=== PATIENT | female | born 1950 | race Caucasian/White ===

== ENCOUNTER 2018-04-17 10:51 | Emergency (ER) | payer MEDICARE, OTHER ==
[2018-04-17 11:03] VITALS: BP 159/77
--- NOTE | 2018-04-17 11:13 | UC ---
Cardiac HPI - HPI Summary HPI Summary: PATIENT FELL ASLEEP ON THE COUCH LAST NIGHT AND WOKE UP AT 3:30 AM THIS MORNING WITH MIDSTERNAL CHEST TIGHTNESS. NOT WORSE WITH EXERTION. NOT WORSE WITH DEEP BREATH. DENIES SHORTNESS OF BREATH AND NAUSEA. PATIENT DOES HAVE DIAPHORESIS BUT STATES THAT SHE HAS TROUBLE WITH THIS AT [facility] AND HAS FOR YEARS. TOOK ASA 81 MG FREIGHT WEIGHER. - History of Current Complaint Chief Complaint: UCChestPain Stated Complaint: CHEST TIGHTNESS Time Seen by Provider: 04/17/18 11:02 Hx Obtained From: Patient Hx Last Menstrual Period: post Onset/Duration: Sudden Onset, Lasting Hours, Still Present Timing: Constant Initial Severity: Moderate Current Severity: Moderate Pain Intensity: 6 Chest Pain Location: Mid Sternal Character: Tightness Aggravating Factor(s): Nothing Alleviating Factor(s): Nothing Associated Signs & Symptoms: Positive: Chest Pain, Diaphoresis. Negative: SOB, Fever, Nausea/Vomiting, Cough, Back Pain - Allergy/Home Medications Allergies/Adverse Reactions: Allergies Allergy/AdvReac Type Severity Reaction Status Date / Time sulfa Allergy Unknown Uncoded 04/17/18 11:09 Reaction Details Home Medications: Home Medications Escitalopram Oxalate [Lexapro 10 mg] 1 tab PO DAILY 04/17/18 [History Confirmed 04/17/18] PMH/Surg Hx/FS Hx/Imm Hx Cardiovascular History: Hypertension Psychological History: Anxiety - Surgical History Surgical History: Yes Surgery Procedure, Year, and Place: APPENDIX,. BREAST REDUCTION,. TONSILECTOMY ,. 2013 ACHILLES RECONSTRUCTION LEFT ANKLE, [facility]. 2014 VITRECTOMY RIGHT EYE, [place] - Social History Alcohol Use: Occasionally Substance Use Type: None Smoking Status (MU): Former Smoker Have You Smoked in the Last Year: No When Did the Patient Quit Smoking/Using Tobacco: YEARS AGO - Immunization History Most Recent Influenza Vaccination: 2011 Most Recent Tetanus Shot: 2013 Review of Systems Constitutional: Negative Respiratory: Negative Cardiovascular: Chest Pain Gastrointestinal: Negative All Other Systems Reviewed And Are Negative: Yes Physical Exam Triage Information Reviewed: Yes Appearance: Well-Appearing, No Pain Distress, Well-Nourished Vital Signs: Initial Vital Signs Temp 96 F 04/17/18 10:56 Pulse 60 04/17/18 10:56 Resp 18 04/17/18 10:56 BP 159/77 04/17/18 10:56 Pulse Ox 96 04/17/18 10:56 Vital Signs Reviewed: Yes Eyes: Positive: Conjunctiva Clear ENT: Positive: Hearing grossly normal Neck: Positive: Supple Respiratory Exam: Normal Cardiovascular Exam: Normal Abdomen Description: Positive: Soft Musculoskeletal: Positive: No Edema Neurological: Positive: Alert Psychological: Positive: Age Appropriate Behavior Skin: Positive: Other - FACE AND NECK DIAPHORETIC Diagnostics - EKG Cardiac Rate: NL - 64BPM Cardiac Rhythm: Sinus: Normal Ectopy: None ST Segment: Normal - Assessment/Plan Course Of Treatment: [place] [facility] [place]. PT OFFERED TRANSPORT TO THE ED BY AMBULANCE BUT DECLINES. ADVISED THAT BY NOT TRAVELING IN A MONITORED SETTING SHE COULD BE RISKING WORSENING OF HER CONDITION THAT COULD POSE A THREAT TO HER LIFE, HEALTH AND MEDICAL SAFETY. SHE VERBALIZES UNDERSTANDING AND CONTINUES TO DECLINE AMBULANCE TRANSFER. GIVEN 3 MORE 81MG ASA FOR A TOTAL OF #4 TODAY. - Clinical Impression Provider Diagnoses: CHEST PAIN Discharge - Sign-Out/Discharge Documenting (check all that apply): Patient Departure - Discharge Plan Condition: Stable Disposition: TRANS HIGHER LVL OF CARE FAC Patient Education Materials: Chest Pain (ED) Referrals: Deyanira Orourke MD [Primary Care Provider] - If Needed Additional Instructions: GO DIRECT[place] [facility] [place] HERE FOR FURTHER EVALUATION. YOU HAVE DECLINED TRANSFER TO THE ED BY AMBULANCE. BE ADVISED THAT BY NOT TRAVELING IN A MONITORED SETTING YOU COULD BE RISKING WORSENING OF YOUR CONDITION THAT COULD POSE A THREAT TO YOUR LIFE, HEALTH AND MEDICAL SAFETY. - Billing Disposition and Condition Condition: STABLE Disposition: Trans Higher Lvl of Care Fac
[2018-04-17] MEDS ORDERED: Aspirin 81 mg CHEW TAB* 81 MG TAB.CHEW PO ONE (11:23)
[2018-04-17] MEDS ORDERED: Nitroglycerin TAB 0.4 MG* 0.4 MG TAB SL ONE (11:23)
== END 2018-04-17 11:35 | disposition short-term general hospital (02) ==
LOC: UCEAST 10:51
DX: R07.89 Other chest pain (principal); Z88.2 Allergy status to sulfonamides; Z87.891 Personal history of nicotine dependence; R61 Generalized hyperhidrosis
CPT/HCPCS: 93005; 99212; A9270-GY; G0463

== ENCOUNTER 2018-04-17 11:52 | Emergency (ER) | payer MEDICARE ==
[2018-04-17] MEDS ORDERED: Nitroglycerin TAB 0.4 MG* 0.4 MG TAB SL ONE (14:00)
--- NOTE | 2018-04-17 14:00 | ED ---
HPI Chest Pain - HPI Summary HPI Summary: This is scribe Rony Harrell documenting for attending Joel Bell M.D. Patient is a 67 y/o F w/ c/o chest tightness onsetting today at around 0330. She reports falling asleep in front of the TV with the lights on. At 0330, she woke up with chest tightness present. She denies nausea, SOB, vomiting, and palpitations. Sweating was also noted, but patient does not describe this as abnormal. She went to her bed with the chest pressure still present. Patient woke up at 0830 and states that she initially felt better, but then she got out of bed and 15 minutes later Sx returned. Patient went to a walk-in clinic, was given aspirin there, and then sent to ED for further care. She rates pain 4-5/ 10 but notes it is not really a pain but rather a pressure. Pressure stays in chest. She states she felt slightly better after a bowel movement but otherwise notes nothing alleviates/aggravates Sx. Patient denies Hx of similar symptoms. PMHx of HTN is noted, denies diabetes. Patient has PSHx of appendectomy, tonsillectomy, Achilles reconstruction on left foot, elective breast reduction, and vitrectomy of left eye. FMHx of diabetes is present. Allergies and home medications are noted. Patient arrived in car. - History of Current Complaint Chief Complaint: EDChestPainROMI Time Seen by Provider: 04/17/18 13:52 Hx Obtained From: Patient Hx Last Menstrual Period: post Onset/Duration: Started Hours Ago - onset 0330 today Timing: Constant Current Severity: Mild - rates 4-5/10 but notes it is more of a pressure as opposed to pain Pain Intensity: 4 Pain Scale Used: 0-10 Numeric - rates 4-5/10 but notes it is more of a pressure as opposed to pain Chest Pain Location: Diffuse Chest Pain Radiates: No Character: Tightness Aggravating Factor(s): Nothing Alleviating Factor(s): Other: - bowel movement was noted to provide slight relief Associated Signs and Symptoms: Positive: Diaphoresis, Other: - POSITIVE: chest tightness NEGATIVE: palpitations. Negative: Shortness of Breath, Nausea, Vomiting - Allergy/Home Medications Allergies/Adverse Reactions: Allergies Allergy/AdvReac Type Severity Reaction Status Date / Time sulfa Allergy Unknown Uncoded 04/17/18 12:10 Reaction Details Home Medications: Home Medications Alpha Lipoic Acid [Alpha Lipoic Acid Extra S] 600 mg PO QAM 04/17/18 [History Confirmed 04/17/18] Ascorbic Acid TAB* [Vitamin C TAB*] 500 mg PO QAM 04/17/18 [History Confirmed 04/17/18] Aspirin EC TAB* [Ecotrin EC Low Dose 81 MG*] 81 mg PO DAILY 04/17/18 [History Confirmed 04/17/18] Atorvastatin* [Lipitor*] 20 mg PO BEDTIME 04/17/18 [History Confirmed 04/17/18] Calcium Carbonate [Calcium] 500 mg PO BID 04/17/18 [History Confirmed 04/17/18] Escitalopram (NF) [Lexapro 10 mg (NF)] 10 mg PO DAILY 04/17/18 [History Confirmed 04/17/18] Lisinopril/HCTZ 20/12.5(NF) [Zestoretic 20/12.5(NF)] 1 tab PO DAILY 04/17/18 [ History Confirmed 04/17/18] Macu-Guard 1 cap PO QAM 04/17/18 [History Confirmed 04/17/18] Metoprolol Tartrate TAB* [Lopressor TAB*] 50 mg PO BEDTIME 04/17/18 [History Confirmed 04/17/18] Kerens-3 Fatty Acids (Nf) [Fish Oil (NF)] 1,000 mg PO BID 04/17/18 [History Confirmed 04/17/18] Vitamin B Complex CAP* [B Complex CAP*] 1 cap PO QAM 04/17/18 [History Confirmed 04/17/18] PMH/Surg Hx/FS Hx/Imm Hx Endocrine/Hematology History: Denies: Hx Diabetes, Hx Sickle Cell Disease Cardiovascular History: Reports: Hx Hypertension - CONTROL WITH MEDS, Other Cardiovascular Problems/Disorders - CHOLESTEROL CONTROL WITH MEDS Denies: Hx Pacemaker/ICD Respiratory History: Denies: Hx Asthma, Other Respiratory Problems/Disorders GI History: Denies: Other GI Disorders History: Reports: Hx Kidney Stones - PASSED Denies: Other Problems/Disorders Musculoskeletal History: Reports: Other Musculoskeletal History - POSTERIOR ANKLE PAIN Denies: Hx Rheumatoid Arthritis, Hx Osteoporosis Sensory History: Reports: Hx Contacts or Glasses - GLASSES TO DRIVE Denies: Hx Hearing Aid Opthamlomology History: Reports: Hx Contacts or Glasses - GLASSES TO DRIVE Neurological History: Reports: Hx Nerve Disease - IDIOPATHIC PERIPHERAL NEUROPATHY, Other Neuro Impairments/Disorders - HX OF OCCASIONAL VERTIGO, LAST EPISODE ABOUT 3 WEEKS AGO, PER PATIENT Psychiatric History: Denies: Hx Panic Disorder - Surgical History Surgery Procedure, Year, and Place: APPENDIX,. BREAST REDUCTION,. TONSILECTOMY ,. 2013 ACHILLES RECONSTRUCTION LEFT ANKLE, [facility]. 2014 VITRECTOMY RIGHT EYE, [place] Hx Anesthesia Reactions: Yes - NAUSEA Infectious Disease History: No Infectious Disease History: Denies: Traveled Outside the [place] in Last 30 Days - Family History Known Family History: Positive: Diabetes - father - Social History Alcohol Use: Occasionally Substance Use Type: Reports: None Smoking Status (MU): Former Smoker Have You Smoked in the Last Year: No Review of Systems Positive: Skin Diaphoresis - described as not abnormal Positive: Other - chest tightness . Negative: Palpitations Negative: Shortness Of Breath Negative: Vomiting, Nausea All Other Systems Reviewed And Are Negative: Yes Physical Exam - Summary Physical Exam Summary: GENERAL: Patient is a well developed and nourished female who is lying comfortable in the stretcher. Patient is not in any acute respiratory distress. HEAD AND FACE: No signs of trauma. No ecchymosis, hematomas or skull depressions. No sinus tenderness. EYES: PERRLA, EOMI x 2, No injected conjunctiva, no nystagmus. EARS: Hearing grossly intact. Ear canals and tympanic membranes are within normal limits. MOUTH: Oropharynx within normal limits. NECK: Supple, trachea is midline, no adenopathy, no JVD, no carotid bruit, no c- spine tenderness, neck with full ROM. CHEST: Symmetric, no tenderness at palpation LUNGS: Clear to auscultation bilaterally. No wheezing or crackles. CVS: Regular rate and rhythm, S1 and S2 present, no murmurs or gallops appreciated. ABDOMEN: Soft, non-tender. No signs of distention. No rebound no guarding, and no masses palpated. Bowel sounds are normal. EXTREMITIES: FROM in all major joints, no edema, no cyanosis or clubbing. NEURO: Alert and oriented x 3. No acute neurological deficits. Speech is normal and follows commands. SKIN: Dry and warm Triage Information Reviewed: Yes Vital Signs On Initial Exam: Initial Vitals Temp Pulse Resp BP Pulse Ox 96.5 F 53 17 128/77 95 04/17/18 12:05 04/17/18 12:05 04/17/18 12:05 04/17/18 12:05 04/17/18 12:05 Vital Signs Reviewed: Yes Diagnostics - Vital Signs Vital Signs Temp Pulse Resp BP Pulse Ox 04/17/18 12:05 96.5 F 53 17 128/77 95 - Laboratory Result Diagrams: 04/17/18 14:09 04/17/18 14:09 Lab Statement: Any lab studies that have been ordered have been reviewed, and results considered in the medical decision making process. - Radiology CXR Xray Interpretation: No Acute Changes Radiology Interpretation Completed By: Radiologist - No active disease. This report was reviewed by ED physician. - EKG 1416 Cardiac Rate: Bradycardia - Rate of 50 BPM EKG Rhythm: Sinus Bradycardia EKG Interpretation: T wave inversion in 3, not different from EKG taken on Re-Evaluation - Re-Evaluation First Eval Re-Evaluation Time: 16:20 Comment: Discussed tests and results with patient. Informed patient will be discharged to home and discussed follow-up plan. Chest Pain Course/Dx - Course Assessment/Plan: This patient is a 67-year-old female who presents to the emergency room with a chief complaint of having chest pressure. She reports that approximately 3:30 morning she woke up and she started having the chest pressure. She to one S patient went back to sleep. He did in the morning she woke up and she continued to have symptoms therefore she went to the walk-in clinic. She was given an aspirin and transferred to the emergency room for further workup and management. Patient reports that the pain is 5 out of 10 nonradiating denies any nausea vomiting they pheresis of dizziness. Past medical history significant for hypertension dyslipidemia. This results without any significant abnormality, troponin is 0.00. Chest x-ray shows no acute critical pulmonary pathology. EKG is a normal sinus rhythm without any ST elevations. The patient was given nitroglycerin in the emergency department and the symptoms did not improve. Second troponin 4 hours apart is also 0.00. Therefore I have no suspicion for an acute coronary syndrome. At this time the patient reports that she is feeling better she doesnt have any chest pain. I believe the patient may benefit from a stress test as an outpatient. Therefore I discussed all the findings and test results with the patient and he to follow- up with primary care physician. At this time the patient is hemodynamically stable alert and oriented 3. She was recommended to return to the emergency department she develops any other symptoms such as chest pain, shortness of breath palpitations, nausea vomiting or diaphoresis. The patient understands and agrees. - Diagnoses Provider Diagnoses: Atypical chest pain Discharge - Sign-Out/Discharge Documenting (check all that apply): Patient Departure - discharge - Discharge Plan Condition: Stable Disposition: HOME Patient Education Materials: Chest Pain (ED) Referrals: Deyanira Orourke MD [Primary Care Provider] - 3 Days Additional Instructions: Return to ED for any new or worsening symptoms.
[2018-04-17 14:18] LABS: ABS Basophils 0 10^3/ul (0-0.2); ABS Eosinophils 0.2 10^3/ul (0-0.6); ABS Lymphocytes 1.7 10^3/ul (1.0-4.8); ABS Monocytes 0.7 10^3/ul (0-0.8); ABS Neutrophils 5.7 10^3/ul (1.5-7.7); ABS Nucleated RBC 0 10^3/ul; Eosinophil % 2.4 % (0-6); Hematocrit 37 % (35-47); Hemoglobin 12.7 g/dl (12.0-16.0); Lymphocyte % 19.8 % (25-47); Mean Corpuscular HGB Conc 34 g/dl (31-36); Mean Corpuscular Hemoglobin 30 pg (27-31); Mean Corpuscular Volume 89 fL (80-97); Mean Platelet Volume 8.6 um3 (7.4-10.4); Nucleated Red Blood Cells % 0; Platelet Count 204 10^3/ul (150-450); Red Blood Count 4.18 10^6/ul (4.00-5.40); Red Cell Distribution Width 14 % (10.5-15); White Blood Count 8.3 10^3/ul (3.5-10.8)
--- NOTE | 2018-04-17 14:33 | RAD ---
INDICATION: Chest pain COMPARISON: None TECHNIQUE: An AP portable view obtained at 1419 hours is submitted. FINDINGS: Bones/Soft Tissues: There are no acute bony findings. Cardiomediastinal: The cardiomediastinal silhouette is normal. Lungs: There are no infiltrates. Pleura: There are no pleural effusions. Other: None IMPRESSION: NO ACTIVE DISEASE.
[2018-04-17 16:54] VITALS: BP 129/77
== END 2018-04-17 16:53 | disposition home or self-care (01) ==
LOC: ED 11:52
DX: R07.89 Other chest pain (principal); R61 Generalized hyperhidrosis; R00.1 Bradycardia, unspecified; I10 Essential (primary) hypertension; E78.5 Hyperlipidemia, unspecified; Z88.2 Allergy status to sulfonamides; Z87.442 Personal history of urinary calculi; Z83.3 Family history of diabetes mellitus; Z87.891 Personal history of nicotine dependence
CPT/HCPCS: 36415; 71045; 80053; 82553; 83605; 83880; 84443; 84484; 85025; 93005; 99283; A9270-GY

== ENCOUNTER 2019-06-02 10:06 | Inpatient (IN) | payer MEDICARE, OTHER ==
[~2019-06-02 10:06] MED LIST: Buffered Lidocaine 1% SYRIN* 1 ML/SYRINGE INTRADERM ONE; Dexamethasone IV* 4 MG/ML 1 ML (4 MG) IV SLOW PU ONE; Famotidine IV* 10 MG/ML 2 ML (20 mg) IV ONE; Lactated Ringers 1000 ML Bag* 1,000 ML IV SCH
[2019-06-02] MEDS ORDERED: ceFAZolin 2 GM in NS PREMIX(*) 2 GM/100 ML BAG IVPB ONE (10:43)
[2019-06-02] MEDS ORDERED: Famotidine IV* 10 MG/ML 2 ML (20 mg) ONE (10:43)
[2019-06-02] MEDS ORDERED: Dexamethasone IV* 4 MG/ML 1 ML (4 MG) ONE (10:43)
[2019-06-02] MEDS ORDERED: Lidocaine 1% INJ* 10 MG/ML 30 ML SDV ONE (11:44)
[2019-06-02] MEDS ORDERED: Propofol* 10 MG/ML 20 ML BTL ONE (11:53)
[2019-06-02] MEDS ORDERED: Midazolam* 1 MG/ML 5 ML VIAL (5 MG) ONE (11:53)
[2019-06-02] MEDS ORDERED: Lidocaine 2% PF * 5 ML VIAL ONE (11:53)
[2019-06-02] MEDS ORDERED: fentaNYL* 50 MCG/ML 2 ML VIAL (100 MCG VIAL) ONE (11:53)
[2019-06-02] MEDS ORDERED: diPHENhydraMINE IV* 50 MG/ML 1 ml VIAL (BENADRYL) IV PRN (12:44)
[2019-06-02] MEDS ORDERED: Ondansetron INJ* 2 MG/ML VIAL IV PRN (12:44)
[2019-06-02] MEDS ORDERED: Morphine INJ* 2 MG/ML 1 ML SYRINGE (TWO MG - NEW SYRINGE VERSION) IV PRN (12:44)
[2019-06-02] MEDS ORDERED: Lactated Ringers 1000 ML Bag* 1,000 ML IV SCH (13:00)
[2019-06-02] MEDS: oxyCODONE TAB* 5 MG TAB PO PRN ×3 (14:51→23:35)
[2019-06-02] MEDS: Acetaminophen TAB* 325 MG PO SCH ×2 (14:52→22:22)
[2019-06-02] MEDS ORDERED: Vancomycin per Pharmacy* NOTE FOLLOW UP PRN (16:11)
[2019-06-02] MEDS ORDERED: Vancomycin 1500 MG IV - x ONCE IVPB ONE ×2 (17:00)
[2019-06-02] MEDS: Escitalopram * 10 MG TAB PO SCH (17:14)
[2019-06-02] MEDS: Aspirin TAB* 325 MG PO SCH (17:14)
--- NOTE | 2019-06-02 20:18 | OP ---
DATE OF OPERATION: 06/02/19 - ROOM #333 DATE OF : 46 ATTENDING SURGEON: William Garcia MD ASSISTED BY: Katheryn Lion PA-C. PRE-OP DIAGNOSIS: Right second toe osteomyelitis and first toe chronic ulcer. POST-OP DIAGNOSIS: Right second toe osteomyelitis and first toe chronic ulcer. OPERATIVE PROCEDURES: Partial amputation of right second toe and debridement of ulcer of right great toe. DESCRIPTION OF PROCEDURE: The patient was taken to the operating room where I used a 10 blade to debride this hypertrophic callus and granulation tissue around the medial great toe distal phalanx. I was able to bring the skin and subcutaneous tissue down to a good clean bed. I did not remove any bone. We made a transverse elliptical incision of the middle phalanx of the second toe , dissecting subperiosteally to disarticulate at the PIP level. We then irrigated after dropping the tourniquet and closed dorsal to plantar with 3-0 Monocryl and 3-0 nylon sutures. A compression dressing was then applied over both toes and an Ari wrap. Cultures were sent from the second toe. [id number]/[facility] #: [id number] [facility] FACILITYEron
[2019-06-02] MEDS: Calcium Carbonate TAB* 1250 MG (CALCIUM 500 MG) PO SCH (22:20)
[2019-06-02] MEDS: Docusate CAP* 100 MG PO SCH (22:20)
[2019-06-02] MEDS: Atorvastatin* 20 MG TAB PO SCH (22:21)
[2019-06-02] MEDS: Metoprolol Tartrate TAB* 50 mg PO SCH (22:21)
[2019-06-03] MEDS: Vancomycin(*) 1,000 MG in NS 0.9% 250 ML* 250 ML IVPB SCH ×2 (06:08→18:01)
[2019-06-03] MEDS: Acetaminophen TAB* 325 MG PO SCH ×3 (06:10→22:52)
[2019-06-03 06:54] LABS: Hematocrit 27 % (35-47); Hemoglobin 9.4 g/dL (12.0-16.0); Mean Platelet Volume 8.6 fL (7.4-10.4); Platelet Count 181 10^3/uL (150-450)
[2019-06-03 07:12] LABS: BUN/Creatinine Ratio 24.7 (8-20); Calcium 9.4 mg/dL (8.6-10.3); EGFR Non-African American 66.1 (>60); Potassium 4.5 mmol/L (3.5-5.0)
[2019-06-03] MEDS: [UNRECOGNIZED DRUG - OTHER] PO SCH (08:43)
[2019-06-03] MEDS: ALPHA LIPOIC ACID 600 MG PO SCH (08:43)
[2019-06-03] MEDS: Metoprolol Tartrate TAB* 50 mg PO SCH ×2 (08:43→22:53)
[2019-06-03] MEDS: PTO:OMEGA-3 FATTY ACIDS (NF) 1,000 MG CAP PO SCH (08:43)
[2019-06-03] MEDS: Vitamin THERAPEUTIC TAB PO SCH (08:43)
[2019-06-03] MEDS: Calcium Carbonate TAB* 1250 MG (CALCIUM 500 MG) PO SCH ×2 (08:44→22:53)
[2019-06-03] MEDS: Lisinopril TAB* 10 MG PO SCH (08:44)
[2019-06-03] MEDS: Docusate CAP* 100 MG PO SCH ×2 (08:44→22:53)
[2019-06-03] MEDS: Aspirin TAB* 325 MG PO SCH (08:44)
[2019-06-03] MEDS: Vitamin B Complex TAB PO SCH (08:44)
[2019-06-03] MEDS: Hydrochlorothiazide TAB* 25 MG PO SCH (08:45)
[2019-06-03] MEDS ORDERED: Benzocaine/Menthol LOZ* 1 LOZENGE PO PRN (08:56)
--- NOTE | 2019-06-03 10:03 | CONS ---
CONSULTATION REPORT: DATE OF CONSULT: 06/03/19 HISTORY OF PRESENT ILLNESS: Lucero Mart is a 68-year-old woman who had been operated on yesterday for osteomyelitis of the right second toe. The patient has peripheral neuropathy and has had recurrent infections in her feet. She had had a prior osteomyelitis and most recently has been treated with IV daptomycin with the plan of removing the right second toe because of deformity and recurrent ulceration and infection. She also has had some infection of the right great toe, but it was felt that it was not clearly osteomyelitic and could be treated with antibiotics. She has been seen in consultation with Dr. Olvera, who is supervising her IV treatment. PAST MEDICAL HISTORY: Significant for the following medical problems: 1. Hypertension. 2. Hyperlipidemia. 3. Peripheral neuropathy, idiopathic. 4. Recent left lumbar radiculopathy. 5. Recent left knee pain, probable torn meniscus. 6. Vitamin D deficiency. 7. Posterior tibial tendon tear on the right and recent left ankle pain of uncertain etiology. 8. Impaired fasting glucose. 9. Obesity. 10. Panic disorder. 11. Hyperhidrosis. 12. 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 13. Anxiety and depression. 14. Positional vertigo. PAST SURGICAL HISTORY: Prior surgical procedures include cataract surgery, retinal surgery, tonsillectomy, appendectomy, reduction mammaplasty, Achilles tendon repair. MEDICATIONS: 1. Ondansetron 4 mg every 4 hours p.r.n. nausea. 2. Hydrocodone 5/325 1 to 2 q.4 h. p.r.n. pain. 3. Lorazepam 1 mg twice a day as needed for anxiety. 4. Vitamin D 2000 units daily. 5. Atorvastatin 20 mg daily. 6. Lisinopril/hydrochlorothiazide 20/12.5 daily. 7. Ventolin 2 puffs every 4 hours p.r.n. wheezing. 8. Metoprolol 25 mg b.i.d. 9. Escitalopram 15 mg daily. 10. GenTeal tears 1 drop as needed p.r.n. 11. Xanax 0.25 mg 1 to 2 every 6 hours p.r.n. panic disorder. 12. Amitriptyline 25 mg q.h.s. p.r.n. neuropathy. 13. Meclizine 25 mg 3 times a day p.r.n. dizziness. 14. Daptomycin 500 mg daily. 15. Ibuprofen 200 mg 1 to 2 p.r.n. pain. 16. Alpha lipoic acid 600 mg daily. 17. Aspirin 81 mg daily. 18. Fluticasone propionate 50 mcg 2 sprays nasal every day as needed for congestion. ALLERGIES: MOLD. HABITS: Tobacco: Smoked when younger, not smoking at present. FAMILY HISTORY: Noncontributory. SOCIAL AND PERSONAL HISTORY: The patient is single. She lives in an apartment in the [facility]. REVIEW OF SYSTEMS: Generally, she has not been feeling well. She has been fatigued. Her appetite is okay. Weight is stable. She denies fevers, chills, or sweats. Skin: See above. She has a rash in her groins. HEENT: Visually impaired, still able to drive during the day. She has a slight sore throat this morning. Nodes: Negative. Heme: Negative except that her H and H is down today. Breasts: See above. Endocrine: See above. Respiratory: See above. Cardiovascular: Negative. GI: Negative. : Negative. 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 Musculoskeletal: See above. Neuro: See above. Psychiatric: See above. PHYSICAL EXAMINATION: Vital Signs: Blood pressure 125/62, pulse 50, respirations 16, temperature 98.2, O2 sat 98% on room air. She is an obese, white female sitting up in the chair. Skin is warm and dry. She has rash in her groins. HEENT: Atraumatic, normocephalic. Mouth: Pharynx is unremarkable. Neck: Supple. Chest: Clear. Heart: Normal S1, S2. No murmurs , gallops, or rubs. Abdomen is obese, nontender. Extremities: Her right foot is wrapped. She has no edema. Neurologic: She is without gross focal or lateralizing signs. DIAGNOSTIC STUDIES/LAB DATA: H and H 9.4/27. Chemistries: Sodium 134, potassium 4.5, chloride 101, CO2 28, BUN and creatinine 21/0.85, glucose 118. IMPRESSION: The patient is status post amputation of the right second toe with mobility problems due to torn right posterior tibial tendon, left lumbar radiculopathy, left knee and ankle pain. The patient is to have a physical therapy evaluation and occupational therapist reevaluation. Possibility has been discussed with Dr. Garcia and Dr. Campoverde about the patient going to [facility] for rehab. Of note, the patient has not slept at all last night except for perhaps 1 hour. She is not ready for discharge today. I will also be following up on her low H and H. Dr. Olvera is treating her for the osteomyelitis. He should be following up on antibiotic therapy based on the cultures obtained at the time of surgery. [id number]/[facility] #: [id number] [facility]ALEron
[2019-06-03] MEDS: Nystatin TOP POWDER* 15 GM BTL TOPICAL SCH ×3 (10:21→23:00)
--- NOTE | 2019-06-03 13:23 | CONS ---
CONSULTATION REPORT: DATE OF CONSULTATION: 06/03/19 PRIMARY CARE PROVIDER: Dr. Deyanira Orourke. PROVIDER REQUESTING CONSULTATION: ANA Ritter CONSULTING SERVICE: Infectious Disease. PROVIDER: Abimael Garcia NP ATTENDING PHYSICIAN: Dr. Jose Olvera.* (DICTATED BY ABIMAEL GARCIA NP) REASON FOR CONSULTATION: Right second toe osteomyelitis. IMPRESSION: 1. Right second toe osteomyelitis and right first toe ulcer. Status post debridement of right first toe ulcer and partial amputation of the right second toe, Postop day #1. She is afebrile, has not had any leukocytosis on her recent labs. CRP last week was slightly elevated at 12.21, previously had been 19.34. Right toe in April grew Proteus mirabilis and Enterococcus faecalis. Soft tissue culture from the OR yesterday with PCR negative for MRSA, Staph aureus negative. Final culture is pending. She has been on daptomycin outpatient. She has been doing well and no issues with the PICC line. 2. Peripheral neuropathy. 3. Obesity. PLAN/RECOMMENDATIONS: Recommend continuing vancomycin for now, while we await culture results. Will be transitioned back to IV antibiotics outpatient at the time of her discharge. We will discharge planning see if her insurance will cover home infusions as she does not feel she will be able to get daily to the infusion center after having surgery. We will continue to follow along. Further recommendations will be based on her clinical course and culture results. HISTORY OF PRESENT ILLNESS: Ms. 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 She is being treated with IV daptomycin outpatient as she states that she has been doing well, tolerating the antibiotics without any side effects. Denies any fevers, chills, nausea, vomiting, diarrhea, constipation, urinary symptoms, or recent travels. Due to a right second toe deformity, it was felt that she would do best with a right second toe amputation. She presented to the hospital yesterday for an elective partial right second toe amputation and debridement of the ulcer at the right first toe. While in the hospital, she has been on vancomycin. She states that the pain she was having in her left leg prior to presentation to the hospital has completely resolved during her hospitalization. PAST MEDICAL HISTORY: 1. Hypertension. 2. Hyperlipidemia. 3. Idiopathic peripheral neuropathy. 4. Left lumbar radiculopathy. 5. Vitamin D deficiency. 6. Posterior tibial tendon tear on the right. 7. Obesity. 8. Panic disorder. 9. Hyperhidrosis. 10. 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 11. Anxiety. 12. Depression. 13. BPPV. PAST SURGICAL HISTORY: 1. Status post cataract extraction. 2. Status post retinal surgery. 3. Status post tonsillectomy. 4. Status post appendectomy. 5. Status post reduction mammoplasty. 6. Status post Achilles tendon repair. MEDICATIONS: Home Medications: 1. Aspirin 81 mg by mouth daily. 2. Ascorbic acid 500 mg by mouth daily. 3. Alpha lipoic acid 600 mg by mouth daily. 4. Metoprolol tartrate 50 mg by mouth twice daily. 5. Macu-Guard 1 tablet by mouth daily. 6. Lisinopril/hydrochlorothiazide 20/12.5 mg 1 tablet by mouth daily. 7. Lexapro 10 mg by mouth daily. 8. Calcium carbonate 500 mg by mouth twice daily. 9. Atorvastatin 20 mg by mouth at bedtime. 10. Vitamin B complex 1 tablet by mouth daily. 11. Fish oil 1000 mg by mouth daily. 12. [place] 5/325 half a tablet by mouth 3 times daily. 13. Heparin sodium PICC line flushes twice daily. 14. Daptomycin intravenously once daily. Hospital Medications: 1. Acetaminophen 975 mg by mouth every 8 hours. 2. Aspirin 325 mg by mouth daily. 3. Atorvastatin 20 mg by mouth daily. 4. Calcium carbonate 1250 mg by mouth twice daily. 5. Benadryl 25 mg IV every 6 hours as needed for itching. 6. Colace 100 mg by mouth twice daily. 7. Lexapro 100 mg by mouth every evening. 8. Fish oil 1000 mg by mouth daily. 9. Heparin sodium 1 to 3 mL flush twice daily. 10. Hydrochlorothiazide 12.5 mg by mouth daily. 11. Lactated Ringers 75 mL intravenously an hour. 12. Lisinopril 20 mg by mouth every morning. 13. Metoprolol tartrate 50 mg by mouth twice daily. 14. Morphine sulfate 2 mg IV every 4 hours as needed for pain. 15. Multivitamin 1 tablet by mouth daily. 16. Alpha lipoic acid 600 mg by mouth daily. 17. Macu-Guard 1 tablet by mouth daily. 18. Nystatin apply topical 3 times daily. 19. Zofran 4 mg IV every 6 hours as needed for nausea. 20. Oxycodone 5 mg by mouth every 4 hours as needed for pain. 21. Throat lozenges 1 by mouth every 2 hours as needed for sore throat. 22. Vancomycin 1 g IV every 12 hours. 23. Vitamin B complex 1 tablet by mouth daily. ALLERGIES: SULFA. The patient states sulfa makes her "crazy." FAMILY HISTORY: Denies family history of coronary artery disease or recurrent infections. Father with a history of diabetes, brother and mother with a history of cancer. SOCIAL HISTORY: She denies alcohol, tobacco, recreational drug use. REVIEW OF SYSTEMS: I performed a 10-point review of systems. All the pertinent positives and negatives are mentioned in the history of present illness. The remaining review of systems are negative. PHYSICAL EXAMINATION: Vital Signs: Temperature 97.7, heart rate 47, respiratory rate 17, O2 sat 97% on room air, blood pressure 116/60. General Appearance: Alert, pleasant, appears to be in no acute distress. Head: Normocephalic, atraumatic. ENT: Extraocular movements are intact. No subconjunctival hemorrhage. Moist mucous membranes. Neck: Supple. No lymphadenopathy. Neurological: Alert and oriented x4. Cranial nerves II through XII are grossly intact. Cardiovascular: Regular rate and rhythm. S1, S2 present. No murmurs, rubs, or gallops heard. Respiratory: No accessory muscle use. Lungs are clear to auscultation bilaterally. Abdomen: Bowel sounds present. Abdomen is soft, nontender, nondistended. Extremities: There is no lower extremity edema. Musculoskeletal: No clubbing or cyanosis noted. She exhibits strength in all extremities. Psychological: Calm and cooperative. Skin: No rashes or abnormalities seen. She has a surgical dressing to her right foot. DIAGNOSTIC STUDIES/LABORATORY DATA: Sodium 134, potassium 4.5, chloride 101, CO2 of 28, BUN 21, creatinine 0.85, glucose 118. Hemoglobin 9.4, hematocrit 27 , platelet count 108. Please see impression and recommendations outlined above, recommendations have been discussed with ANA Ritter. Thank you for asking us to see Ms. Mart in consultation. Case has been reviewed with my attending, Dr. Jose Olvera, who agrees with the plan of care. Reviewed by PATTI CHANDLER 06/04/19 1257 [id number]/[facility] #: [id number] MTDD
--- NOTE | 2019-06-03 15:27 | PN ---
Progress Note - Progress Note Date of Service: 06/03/19 SOAP: Subjective: []Pt seen and examined at bedside. She has no pain of her RLE, though has significant neuropathy at baseline. Denies CP, SOB, dizziness, nausea. Pt previously felt she would need rehab as she was having significant sciatica pain which has entirely resolved. She feels she might be capable of going home with VNS and home PT. Objective: []Gen: Appears well, NAD RLE: Dressing CDI, no erythema proximally. Able to wiggle exposed toes, cap refill less than two seconds distally Calves supple and nontender Assessment: [] Right second toe osteomyelitis and first toe chronic ulcer. POD 1 sp Partial amputation of right second toe and debridement of ulcer of right great toe. Plan: []Heel WB post op shoe PT/OT ID managing IV abx - pt was on dapto outpt prior to surgery. On [facility] inpatient. Awaiting insurance approval, culture results. Tentative plan if going home and able to get rides for daily infusion: dapto qd, if going to rehab [facility]. Vital Signs Temp 98.2 F 06/03/19 15:12 Pulse 49 06/03/19 15:12 Resp 18 06/03/19 15:12 BP 112/50 06/03/19 15:12 Pulse Ox 96 06/03/19 15:12 Intake & Output 06/02/19 06/03/19 06/03/19 18:59 06:59 18:59 Intake Total 1670 1966 805 Output Total 0 800 800 Balance 1670 1166 5 Weight 232 lb 11.301 oz Intake: IV Fluids 800 986 LR 700 986 NS 100ML, Cefazolin 2G 100 IVPB 520 285 ABX - VANCOMYCIN 260 285 Oral 350 980 520 Output: Urine 0 800 800 Other: Estimated Void Medium # Voids 1 Laboratory Last Values Hgb 9.4 g/dL (12.0-16.0) L 06/03/19 06:35 Hct 27 % (35-47) L 06/03/19 06:35 Plt Count 181 10^3/uL (150-450) 06/03/19 06:35 MPV 8.6 fL (7.4-10.4) 06/03/19 06:35 Sodium 134 mmol/L (135-145) L 06/03/19 06:35 Potassium 4.5 mmol/L (3.5-5.0) 06/03/19 06:35 Chloride 101 mmol/L (101-111) 06/03/19 06:35 Carbon Dioxide 28 mmol/L (22-32) 06/03/19 06:35 Anion Gap 5 mmol/L (2-11) 06/03/19 06:35 BUN 21 mg/dL (6-24) 06/03/19 06:35 Creatinine 0.85 mg/dL (0.51-0.95) 06/03/19 06:35 Est GFR ( Amer) 80.0 (>60) 06/03/19 06:35 Est GFR (Non-Af Amer) 66.1 (>60) 06/03/19 06:35 BUN/Creatinine Ratio 24.7 (8-20) H 06/03/19 06:35 Glucose 118 mg/dL (70-100) H 06/03/19 06:35 Calcium 9.4 mg/dL (8.6-10.3) 06/03/19 06:35
[2019-06-03] MEDS: Escitalopram * 10 MG TAB PO SCH (18:01)
[2019-06-03] MEDS: Atorvastatin* 20 MG TAB PO SCH (22:53)
[2019-06-04 06:10] LABS: ABS Eosinophils 0.1 10^3/ul (0-0.6); ABS Lymphocytes 2.9 10^3/ul (1.0-4.8); ABS Monocytes 0.5 10^3/ul (0-0.8); ABS Neutrophils 4.7 10^3/ul (1.5-7.7); Eosinophil % 1.7 %; Hematocrit 30 % (35-47); Hemoglobin 10.2 g/dL (12.0-16.0); Lymphocyte % 35.2 %; Mean Corpuscular HGB Conc 34 g/dL (31-36); Mean Corpuscular Hemoglobin 31 pg (27-31); Mean Corpuscular Volume 90 fL (80-97); Mean Platelet Volume 8.8 fL (7.4-10.4); Nucleated Red Blood Cells % 0.1; Platelet Count 191 10^3/uL (150-450); Red Blood Count 3.34 10^6 /uL (3.70-4.87); Red Cell Distribution Width 14 % (10-15); White Blood Count 8.3 10^3/uL (3.5-10.8)
[2019-06-04 06:29] LABS: BUN/Creatinine Ratio 25.6 (8-20); Calcium 8.8 mg/dL (8.6-10.3); EGFR African American 88.3 (>60); Potassium 4.1 mmol/L (3.5-5.0)
[2019-06-04 06:31] LABS: Vancomycin Trough 10.6 mcg/mL
[2019-06-04] MEDS: Vancomycin(*) 1,000 MG in NS 0.9% 250 ML* 250 ML IVPB SCH ×2 (07:18→07:39)
[2019-06-04] MEDS: Acetaminophen TAB* 325 MG PO SCH ×3 (07:39→22:34)
[2019-06-04] MEDS ORDERED: Senna TAB 8.6 mg* TAB PO PRN (09:03)
[2019-06-04] MEDS ORDERED: Magnesium Hydroxide LIQ* 30 ML UDC PO PRN (09:03)
[2019-06-04] MEDS ORDERED: Polyethylene Glycol 3350* 17 GM PACKET PO PRN (09:03)
[2019-06-04] MEDS ORDERED: Bisacodyl SUPP* 10 MG SUPP PR PRN (09:03)
[2019-06-04] MEDS: PTO:OMEGA-3 FATTY ACIDS (NF) 1,000 MG CAP PO SCH (09:45)
[2019-06-04] MEDS: ALPHA LIPOIC ACID 600 MG PO SCH (09:46)
[2019-06-04] MEDS: [UNRECOGNIZED DRUG - OTHER] PO SCH (09:46)
[2019-06-04] MEDS: Calcium Carbonate TAB* 1250 MG (CALCIUM 500 MG) PO SCH ×2 (09:51→20:48)
[2019-06-04] MEDS: Lisinopril TAB* 10 MG PO SCH (09:52)
[2019-06-04] MEDS: Aspirin TAB* 325 MG PO SCH (09:52)
[2019-06-04] MEDS: Docusate CAP* 100 MG PO SCH ×2 (09:52→20:48)
[2019-06-04] MEDS: Hydrochlorothiazide TAB* 25 MG PO SCH (09:52)
[2019-06-04] MEDS: Vitamin B Complex TAB PO SCH (09:53)
[2019-06-04] MEDS: Metoprolol Tartrate TAB* 50 mg PO SCH ×2 (09:53→20:48)
[2019-06-04] MEDS: Nystatin TOP POWDER* 15 GM BTL TOPICAL SCH ×3 (09:53→20:52)
[2019-06-04] MEDS: Vitamin THERAPEUTIC TAB PO SCH (09:53)
[2019-06-04] MEDS: oxyCODONE TAB* 5 MG TAB PO PRN (12:24)
[2019-06-04] MEDS: cefTRIAXone(*) 2 GM in NS 0.9% 100 ML* 100 ML IVPB SCH (12:26)
--- NOTE | 2019-06-04 14:30 | PN ---
Progress Note - Progress Note Date of Service: 06/04/19 SOAP: Subjective: []Pt seen and examined at bedside. She has no pain of her right foot and no other complaints. Denies fever, chills. Objective: []Gen: Appears well, laying comfortably in bed RLE: Dressing CDI, able to f/e MTPs, cap refill less than two seconds distally, has some sensation to light touch distally consistent with baseline Calves supple and nontender Assessment: []Right second toe osteomyelitis and first toe chronic ulcer. POD 2 sp Partial amputation of right second toe and debridement of ulcer of right great toe. Plan: [] Wound culture + proteus mirabilis Will do home IV antibiotic for at least the first two weeks. Anibal will meet with the patient tomorrow morning Heel WB Will wound check/ change dressing prior to DC Pt is scheduled for ABIs this sunday, desires for this test to be done while in the hospital if able. I have ordered ABIs though discharge should not be held for completion of this test Vital Signs Temp 97.9 F 06/04/19 11:32 Pulse 49 06/04/19 11:32 Resp 18 06/04/19 12:24 BP 122/78 06/04/19 11:32 Pulse Ox 99 06/04/19 11:32 Intake & Output 06/03/19 06/04/19 06/04/19 18:59 06:59 18:59 Intake Total 805 700 650 Output Total 900 200 0 Balance -95 500 650 Intake: IV Fluids 20 NS 20 IVPB 285 270 ABX - VANCOMYCIN 285 270 Oral 520 700 360 Output: Urine 900 200 0 Other: # Bowel Movements 1 Estimated Stool Amount Small Laboratory Last Values WBC 8.3 10^3/uL (3.5-10.8) 06/04/19 04:10 RBC 3.34 10^6 /uL (3.70-4.87) L 06/04/19 04:10 Hgb 10.2 g/dL (12.0-16.0) L 06/04/19 04:10 Hct 30 % (35-47) L 06/04/19 04:10 MCV 90 fL (80-97) 06/04/19 04:10 MCH 31 pg (27-31) 06/04/19 04:10 MCHC 34 g/dL (31-36) 06/04/19 04:10 RDW 14 % (10-15) 06/04/19 04:10 Plt Count 191 10^3/uL (150-450) 06/04/19 04:10 MPV 8.8 fL (7.4-10.4) 06/04/19 04:10 Neut % (Auto) 56.6 % 06/04/19 04:10 Lymph % (Auto) 35.2 % 06/04/19 04:10 [place] % (Auto) 6.2 % 06/04/19 04:10 Eos % (Auto) 1.7 % 06/04/19 04:10 Baso % (Auto) 0.3 % 06/04/19 04:10 Absolute Neuts (auto) 4.7 10^3/ul (1.5-7.7) 06/04/19 04:10 Absolute Lymphs (auto) 2.9 10^3/ul (1.0-4.8) 06/04/19 04:10 Absolute Monos (auto) 0.5 10^3/ul (0-0.8) 06/04/19 04:10 Absolute Eos (auto) 0.1 10^3/ul (0-0.6) 06/04/19 04:10 Absolute Basos (auto) 0.0 10^3/ul (0-0.2) 06/04/19 04:10 Absolute Nucleated RBC 0.0 10^3/ul 06/04/19 04:10 Nucleated RBC % 0.1 06/04/19 04:10 Sodium 139 mmol/L (135-145) 06/04/19 04:10 Potassium 4.1 mmol/L (3.5-5.0) 06/04/19 04:10 Chloride 105 mmol/L (101-111) 06/04/19 04:10 Carbon Dioxide 30 mmol/L (22-32) 06/04/19 04:10 Anion Gap 4 mmol/L (2-11) 06/04/19 04:10 BUN 20 mg/dL (6-24) 06/04/19 04:10 Creatinine 0.78 mg/dL (0.51-0.95) 06/04/19 04:10 Est GFR ( Amer) 88.3 (>60) 06/04/19 04:10 Est GFR (Non-Af Amer) 73.0 (>60) 06/04/19 04:10 BUN/Creatinine Ratio 25.6 (8-20) H 06/04/19 04:10 Glucose 89 mg/dL (70-100) 06/04/19 04:10 Calcium 8.8 mg/dL (8.6-10.3) 06/04/19 04:10 Vancomycin Trough 10.6 mcg/mL 06/04/19 04:10
[2019-06-04] MEDS: Vancomycin(*) 1,250 MG in NS 0.9% 250 ML* 250 ML IVPB SCH (17:48)
[2019-06-04] MEDS: Escitalopram * 10 MG TAB PO SCH (17:49)
[2019-06-04] MEDS: Atorvastatin* 20 MG TAB PO SCH (20:48)
--- NOTE | 2019-06-04 23:21 | CONS ---
FOLLOWUP CONSULT NOTE: DATE OF CONSULT: 06/04/19 HISTORY OF PRESENT ILLNESS: The patient feels fairly well. She does not have significant pain. She has been getting vancomycin. Her cultures from surgery are pending. She has had some constipation. She has been up to the bathroom, maintaining heel weightbearing status. She continues to have less radiculopathy , left knee pain than she did prior to admission. PHYSICAL EXAMINATION: Vital Signs: Blood pressure 127/67, pulse 50, respirations 16, temperature 97.9, O2 sat 95%. She looks well. Right foot is wrapped. LABORATORY DATA: CBC: WBC 8.3, H and H 10.2/30, MCV 90, PLT 191K. Chemistries : Sodium 139, potassium 4.1, chloride 105, CO2 of 30, BUN and creatinine 20/0.78 , glucose 89, calcium 8.8. IMPRESSION: The patient doing well postoperatively. It is not clear why her H and H dropped as she did not have significant blood loss during surgery. They may have been partly due to IV fluids. Labs are being drawn out of the PICC line. We will check again tomorrow. Otherwise, she is doing well. [id number]/[facility] #: [id number] MTDD
[2019-06-05] MEDS: Vancomycin(*) 1,250 MG in NS 0.9% 250 ML* 250 ML IVPB SCH (05:36)
[2019-06-05] MEDS: Acetaminophen TAB* 325 MG PO SCH (05:52)
[2019-06-05 06:14] LABS: ABS Eosinophils 0.3 10^3/ul (0-0.6); ABS Lymphocytes 2.4 10^3/ul (1.0-4.8); ABS Monocytes 0.5 10^3/ul (0-0.8); ABS Neutrophils 3.4 10^3/ul (1.5-7.7); Corrected Retic Count 0.8 % (0.5-1.5); Eosinophil % 3.8 %; Hematocrit 31 % (35-47); Hematocrit for Retic CNT 31 % (35-47); Hemoglobin 10.3 g/dL (12.0-16.0); Lymphocyte % 36.6 %; Mean Corpuscular HGB Conc 33 g/dL (31-36); Mean Corpuscular Hemoglobin 30 pg (27-31); Mean Corpuscular Volume 90 fL (80-97); Mean Platelet Volume 8.7 fL (7.4-10.4); Nucleated Red Blood Cells % 0.1; Platelet Count 192 10^3/uL (150-450); RBC Retic Count 3.43 10^6/uL (3.70-4.87); Red Blood Count 3.43 10^6 /uL (3.70-4.87); Red Cell Distribution Width 14 % (10-15); White Blood Count 6.6 10^3/uL (3.5-10.8)
[2019-06-05] MEDS: Hydrochlorothiazide TAB* 25 MG PO SCH (08:52)
[2019-06-05] MEDS: Aspirin TAB* 325 MG PO SCH (08:52)
[2019-06-05] MEDS: Vitamin THERAPEUTIC TAB PO SCH (08:52)
[2019-06-05] MEDS: Vitamin B Complex TAB PO SCH (08:52)
[2019-06-05] MEDS: Lisinopril TAB* 10 MG PO SCH (08:52)
[2019-06-05] MEDS: Docusate CAP* 100 MG PO SCH (08:52)
[2019-06-05] MEDS: Metoprolol Tartrate TAB* 50 mg PO SCH (08:53)
[2019-06-05] MEDS: Calcium Carbonate TAB* 1250 MG (CALCIUM 500 MG) PO SCH (08:53)
[2019-06-05] MEDS: PTO:OMEGA-3 FATTY ACIDS (NF) 1,000 MG CAP PO SCH (08:54)
[2019-06-05] MEDS: [UNRECOGNIZED DRUG - OTHER] PO SCH (08:54)
[2019-06-05] MEDS: ALPHA LIPOIC ACID 600 MG PO SCH (08:54)
--- NOTE | 2019-06-05 10:39 | PN ---
Progress Note - Progress Note Date of Service: 06/05/19 SOAP: Subjective: CC: foot infection HPI: 68 year old woman with neuropathy, had partial amp right second toe which she tolerated well. No problems with antibiotics here, no fever, rash, or diarrhea. Objective: Vital Signs Temp 36.6 C 06/05/19 07:19 Pulse 53 06/05/19 07:19 Resp 16 06/05/19 08:23 BP 133/57 06/05/19 07:19 Pulse Ox 97 06/05/19 07:19 Intake & Output 06/04/19 06/05/19 06/05/19 18:59 06:59 18:59 Intake Total 780 800 560 Output Total 0 1480 300 Balance 780 -680 260 Intake: IV Fluids 40 60 NS 40 60 IVPB 270 290 ABX - VANCOMYCIN 270 290 Medicated IV 110 Ceftriaxone 110 Oral 360 800 210 Output: Urine 0 1480 300 Other: # Bowel Movements 1 Estimated Stool Amount Small Gen:awake,no distress HEENT: no thrush Heart:RRR no murmur Lungs:CTA BL Abd:+BS NTND soft Skin: no rash MSK: no spine tenderness Laboratory Results - last 24 hr 06/05/19 05:35 WBC 6.6 RBC 3.43 L RBC (Retic) 3.43 L Hgb 10.3 L Hct 31 L HCT (Retic) 31 L MCV 90 MCH 30 MCHC 33 RDW 14 Plt Count 192 MPV 8.7 Neut % (Auto) 51.7 Lymph % (Auto) 36.6 [place] % (Auto) 7.6 Eos % (Auto) 3.8 Baso % (Auto) 0.3 Absolute Neuts (auto) 3.4 Absolute Lymphs (auto) 2.4 Absolute Monos (auto) 0.5 Absolute Eos (auto) 0.3 Absolute Basos (auto) 0.0 Absolute Nucleated RBC 0.0 Nucleated RBC % 0.1 Retic Count, Calc 1.1 Corrected Retic Count 0.8 Retic Shift Factor 1.5 Retic Production Index 0.50 Immature Retic Fraction 0.30 Mean Retic Volume 107.7 Microbiology 06/02/19 12:40 Misc Source (See Comment) - Other Anaerobic Culture - Preliminary 06/02/19 12:40 Toe Skin and Soft Tissue MRSA/MSSA (PCR - Final Mrsa Negative S.aureus Negative 06/02/19 12:40 Toe Gram Stain - Final 06/02/19 12:40 Toe Wound Culture - Preliminary Proteus Mirabilis Assessment: 1. acute osteomyelitis right great toe, likely polumicrobial 2. 2nd toe osteomyelitis s/p partial amputation 3. peripheral neuropathy 4. sulfa allergy Plan: 1. vancomycin 1 gm IV Q12hrs, ceftriaxone 2 gm IV daily for 28 days with weekly cbc, cmp, crp, vanco trough, fu with me 1-2 weeks
[2019-06-05] MEDS: Nystatin TOP POWDER* 15 GM BTL TOPICAL SCH (11:10)
[2019-06-05] MEDS: cefTRIAXone(*) 2 GM in NS 0.9% 100 ML* 100 ML IVPB SCH (11:14)
--- NOTE | 2019-06-05 11:25 | PN ---
Progress Note - Progress Note Date of Service: 06/05/19 SOAP: Subjective: []Pt seen at bedside, she feels well without complaints. Denies fever, chills, CP, SOB, dizziness, nausea. Objective: []Gen: Appears well, laying comfortably in bed RLE: Dressing changed, 2nd toe incision CDI without discharge or erythema. Great toe debrided area dry no erythema, able to f/e MTPs, cap refill less than two seconds distally, has some sensation to light touch distally consistent with baseline Calves supple and nontender Assessment: []Right second toe osteomyelitis and first toe chronic ulcer. POD 3 sp Partial amputation of right second toe and debridement of ulcer of right great toe. Plan: [] Heel WB Wound culture + proteus mirabilis Home IV abx infusions. abx ordered per ID ABIs done last night though incomplete study unable to get R toe P due to recent surg debridement and unable to get R brachial P due to PICC Diagnostic studies Patient Name: DELLA WHITE Medical Record#: [id number] Ordering Physician: Loretta PEREZ Acct.#: [id number] : 1950 Age: 68 Sex: F Location: SURGICAL STAY UNIT Exam Date: 06/04/19 1641 ADM Status: ADM IN Order Information: VL ANK/ BRACHIAL INDICES Accession Number: [id number] CPT: 91911 EXAM: US Bilateral Noninvasive Physiologic Study of the Upper or Lower Extremity Arteries, Limited EXAM DATE/TIME: 06/04/2019 6:50 PM CLINICAL HISTORY: 68 years old, female; Other: Vascular ulcers in RT foot; Prior surgery; Surgery date: Post-operative (0-2 days); Surgery type: Amputation of 2nd toe; Additional info: Toe wounds TECHNIQUE: Imaging protocol: Bilateral Bilateral noninvasive physiologic studies of upper or lower extremity arteries. Ankle/brachial indices at distal posterior tibial and anterior tibial/dorsalis pedis arteries plus bidirectional, doppler waveform recording and analysis at 1-2 levels, or ankle/brachial indices at distal posterior tibial and anterior tibial/dorsalis pedis arteries plus volume plethysmography at 1-2 levels, or ankle/brachial indices at distal posterior tibial and anterior tibial/dorsalis pedis arteries with, transcutaneous oxygen tension measurement at 1-2 levels. Images were documented and archived. Limited. COMPARISON: US Lower Arterial 07/11/2017 10:33 AM FINDINGS: Segmental BP: Right: Brachial: Not obtained due to indwelling PICC line. Ankle (PT): 169 mmHg (index = 1.27). Ankle (DP): 167 mmHg (index = 1.26). Digit: Not obtained due to recent surgical debridement. Left: Brachial: 133 mmHg Ankle (PT): 153 mmHg (index = 1.15). Ankle (DP): 153 mmHg (index = 1.15). Digit: 144 mmHg (index = 1.08). Doppler: Right: Posterior tibial: Triphasic Dorsalis pedis: Triphasic Left: Posterior tibial: Triphasic Dorsalis pedis: Triphasic IMPRESSION: This report is only to be considered final once signed by the Provider(s) as displayed in the "<Electronically Signed by >" field (s). Absence of a signature indicates the report is in a draft status and still needs to be finalized. In the event this document was created by someone other than the signing Provider, the individual initiating the document will be listed in the "Entered by:" or "Dictated by:" ruiz. 1 of 2 Vital Signs Temp 98 F 06/05/19 07:19 Pulse 53 06/05/19 07:19 Resp 16 06/05/19 08:23 BP 133/57 06/05/19 07:19 Pulse Ox 97 06/05/19 07:19 Intake & Output 06/04/19 06/05/19 06/05/19 18:59 06:59 18:59 Intake Total 780 800 560 Output Total 0 1480 300 Balance 780 -680 260 Intake: IV Fluids 40 60 NS 40 60 IVPB 270 290 ABX - VANCOMYCIN 270 290 Medicated IV 110 Ceftriaxone 110 Oral 360 800 210 Output: Urine 0 1480 300 Other: # Bowel Movements 1 Estimated Stool Amount Small Laboratory Last Values WBC 6.6 10^3/uL (3.5-10.8) 06/05/19 05:35 RBC 3.43 10^6 /uL (3.70-4.87) L 06/05/19 05:35 RBC (Retic) 3.43 10^6/uL (3.70-4.87) L 06/05/19 05:35 Hgb 10.3 g/dL (12.0-16.0) L 06/05/19 05:35 Hct 31 % (35-47) L 06/05/19 05:35 HCT (Retic) 31 % (35-47) L 06/05/19 05:35 MCV 90 fL (80-97) 06/05/19 05:35 MCH 30 pg (27-31) 06/05/19 05:35 MCHC 33 g/dL (31-36) 06/05/19 05:35 RDW 14 % (10-15) 06/05/19 05:35 Plt Count 192 10^3/uL (150-450) 06/05/19 05:35 MPV 8.7 fL (7.4-10.4) 06/05/19 05:35 Neut % (Auto) 51.7 % 06/05/19 05:35 Lymph % (Auto) 36.6 % 06/05/19 05:35 [place] % (Auto) 7.6 % 06/05/19 05:35 Eos % (Auto) 3.8 % 06/05/19 05:35 Baso % (Auto) 0.3 % 06/05/19 05:35 Absolute Neuts (auto) 3.4 10^3/ul (1.5-7.7) 06/05/19 05:35 Absolute Lymphs (auto) 2.4 10^3/ul (1.0-4.8) 06/05/19 05:35 Absolute Monos (auto) 0.5 10^3/ul (0-0.8) 06/05/19 05:35 Absolute Eos (auto) 0.3 10^3/ul (0-0.6) 06/05/19 05:35 Absolute Basos (auto) 0.0 10^3/ul (0-0.2) 06/05/19 05:35 Absolute Nucleated RBC 0.0 10^3/ul 06/05/19 05:35 Nucleated RBC % 0.1 06/05/19 05:35 Retic Count, Calc 1.1 % (0.5-1.5) 06/05/19 05:35 Corrected Retic Count 0.8 % (0.5-1.5) 06/05/19 05:35 Retic Shift Factor 1.5 06/05/19 05:35 Retic Production Index 0.50 06/05/19 05:35 Immature Retic Fraction 0.30 06/05/19 05:35 Mean Retic Volume 107.7 06/05/19 05:35 Sodium 139 mmol/L (135-145) 06/04/19 04:10 Potassium 4.1 mmol/L (3.5-5.0) 06/04/19 04:10 Chloride 105 mmol/L (101-111) 06/04/19 04:10 Carbon Dioxide 30 mmol/L (22-32) 06/04/19 04:10 Anion Gap 4 mmol/L (2-11) 06/04/19 04:10 BUN 20 mg/dL (6-24) 06/04/19 04:10 Creatinine 0.78 mg/dL (0.51-0.95) 06/04/19 04:10 Est GFR ( Amer) 88.3 (>60) 06/04/19 04:10 Est GFR (Non-Af Amer) 73.0 (>60) 06/04/19 04:10 BUN/Creatinine Ratio 25.6 (8-20) H 06/04/19 04:10 Glucose 89 mg/dL (70-100) 06/04/19 04:10 Calcium 8.8 mg/dL (8.6-10.3) 06/04/19 04:10 Vancomycin Trough 10.6 mcg/mL 06/04/19 04:10
[2019-06-05 11:30] VITALS: BP 130/64
--- NOTE | 2019-06-05 11:45 | DS ---
Orthopedic Discharge Summary - Discharge Summary Date of Admission:06/02/19 Date of Discharge: 06/05/19 Date of Surgery: 06/02/19 Attending Orthopedic Provider: Dr Garcia Pre-operative Diagnosis: Right 2nd toe osteomyelitis Operative Procedure: right 2nd toe partial amputation, right great toe debridement Disposition of Patient: home Condition of Patient: stable History: DELLA WHITE is a 68 year old F with right 2nd toe osteomyelitis. Hospital Course: DELLA was admitted to [facility] on 06/02/19. Patient underwent a [ right 2nd toe partial amputation, R 1st toe debridement] without complication followed by a brief recovery in PACU and transfer to the Short Stay Surgical Unit in stable condition. Dr Orourke, ID, physical therapy and occupational therapy also participated in this patients care. Post-op day 1 : patient was alert and in no acute distress. Dressing was clean, dry and intact. sensation decreased consistent with baseline but intact distally, DP2+ . Post-op day three: dressing was changed, incision was clean, dry and intact. Patient was deemed to be medically and orthopedically stable for discharge. She had ABIs in house, though toe pressures unable to be done at this time with recent debridement of great toe. Toe pressures will need to be done at a later date. Physical therapy goals were met. Home Medications Medication Instructions Recorded Confirmed Type Alpha Lipoic Acid 600 mg PO QAM 04/17/18 06/02/19 History Ascorbic Acid TAB* [Vitamin C 500 mg PO QAM 04/17/18 06/02/19 History TAB*] Aspirin EC TAB* [Ecotrin EC Low 81 mg PO QPM 04/17/18 06/02/19 History Dose 81 MG*] Atorvastatin* [Lipitor 20 MG*] 20 mg PO BEDTIME 04/17/18 06/02/19 History Calcium Carbonate [Calcium] 500 mg PO BID 04/17/18 06/02/19 History Escitalopram * [Lexapro 10 mg (NF)] 10 mg PO QPM 04/17/18 06/02/19 History Lisinopril/HCTZ 20/12.5(NF) 1 tab PO QAM 04/17/18 06/02/19 History [Zestoretic 20/12.5(NF)] Macu-Guard 1 cap PO QAM 04/17/18 06/02/19 History Metoprolol Tartrate TAB* 50 mg PO BID 04/17/18 06/02/19 History [Lopressor TAB*] [place]-3 Fatty Acids (Nf) [Fish Oil 1,000 mg PO QAM 04/17/18 06/02/19 History (NF)] Vitamin B Complex CAP* [B Complex 1 cap PO QAM 04/17/18 06/02/19 History CAP*] HYDROcodone/ACETAMIN 5-325 MG* 0.5 tab PO TID 05/27/19 06/02/19 History [[place] 5-325 TAB*] Acetaminophen TAB* [Tylenol TAB*] 975 mg PO Q8H tab 06/05/19 Rx Aspirin TAB* [Aspirin 325 MG TAB*] 325 mg PO DAILY #30 tab 06/05/19 Rx Docusate CAP* [Colace Cap*] 100 mg PO BID cap 06/05/19 Rx oxyCODONE TAB* [Roxycodone TAB 5 5 mg PO Q6H PRN #5 tab MDD 4 06/05/19 Rx mg*] Discharge Instructions following Orthopedic Surgery: Activity: * Heel weight bearing in post op shoe operative foot * Continue physical therapy and occupational therapy exercises as shown Wound care: * Dressing change every other day- xeroform over incisions, then gauze and dontae wrap. Call Orthopedic office for: * Increased drainage * Redness * Increased pain * Fever Go to ER with shortness of breath or chest pain. Diet: * Regular diet * Increase fluids and fiber to prevent constipation. * Continue to use stool softeners, call office if no bowel motion within 48 hours. Medications See Home Medication List in your packet for medications that you should take after discharge. DVT Prophylaxis: Aspirin Dosin mg once a day until follow up visit Pain Control: oxycodone Dosin mg 1 tabs by mouth every 6 hours as needed for pain. Maximum of 4 tabs per day. FOLLOW UP: Follow up with [Jose] next week, call for appointment Please call our office with any questions or concerns ([phone]) Antibiotic plan: vancomycin 1 gm IV Q12hrs, ceftriaxone 2 gm IV daily for 28 days with weekly cbc, cmp, crp, vanco trough, fu with me 1-2 weeks SHANEL: Patient Name: DELLA WHITE Medical Record#: [id number] Ordering Physician: Loretta PEREZ Acct.#: [id number] : 1950 Age: 68 Sex: F Location: SURGICAL STAY UNIT Exam Date: 06/04/19 164 ADM Status: ADM IN Order Information: VL ANK/ BRACHIAL INDICES Accession Number: [id number] CPT: 09072 EXAM: US Bilateral Noninvasive Physiologic Study of the Upper or Lower Extremity Arteries, Limited EXAM DATE/TIME: 06/04/2019 6:50 PM CLINICAL HISTORY: 68 years old, female; Other: Vascular ulcers in RT foot; Prior surgery; Surgery date: Post-operative (0-2 days); Surgery type: Amputation of 2nd toe; Additional info: Toe wounds TECHNIQUE: Imaging protocol: Bilateral Bilateral noninvasive physiologic studies of upper or lower extremity arteries. Ankle/brachial indices at distal posterior tibial and anterior tibial/dorsalis pedis arteries plus bidirectional, doppler waveform recording and analysis at 1-2 levels, or ankle/brachial indices at distal posterior tibial and anterior tibial/dorsalis pedis arteries plus volume plethysmography at 1-2 levels, or ankle/brachial indices at distal posterior tibial and anterior tibial/dorsalis pedis arteries with, transcutaneous oxygen tension measurement at 1-2 levels. Images were documented and archived. Limited. COMPARISON: US Lower Arterial 07/11/2017 10:33 AM FINDINGS: Segmental BP: Right: Brachial: Not obtained due to indwelling PICC line. Ankle (PT): 169 mmHg (index = 1.27). Ankle (DP): 167 mmHg (index = 1.26). Digit: Not obtained due to recent surgical debridement. Left: Brachial: 133 mmHg Ankle (PT): 153 mmHg (index = 1.15). Ankle (DP): 153 mmHg (index = 1.15). Digit: 144 mmHg (index = 1.08). Doppler: Right: Posterior tibial: Triphasic Dorsalis pedis: Triphasic Left: Posterior tibial: Triphasic Dorsalis pedis: Triphasic IMPRESSION: This report is only to be considered final once signed by the Provider(s) as displayed in the "<Electronically Signed by >" field (s). Absence of a signature indicates the report is in a draft status and still needs to be finalized. In the event this document was created by someone other than the signing Provider, the individual initiating the document will be listed in the "Entered by:" or "Dictated by:" ruiz. 1 of 2
[2019-06-06] MEDS ORDERED: Vancomycin Trough Check NOTE FOLLOW UP ONE (05:30)
== END 2019-06-05 13:17 | disposition home or self-care (01) | DRG 465 ==
LOC: OR 10:06 → SSU 12:44 → OBSVTOIN 06-03 14:48
PROVIDERS: ADMIT Physician Assistant; ATTEND Orthopaedic Surgery
PROC: 0JBQ0ZZ Excision of Right Foot Subcutaneous Tissue and Fascia, Open Approach (ICD-10-PCS; 2019-06-02)
PROC: 0Y6R0Z2 Detachment at Right 2nd Toe, Mid, Open Approach (ICD-10-PCS; principal; 2019-06-02 11:45)
DX: M86.171 Other acute osteomyelitis, right ankle and foot (principal); L97.513 Non-pressure chronic ulcer of other part of right foot with necrosis of muscle; B96.4 Proteus (mirabilis) (morganii) as the cause of diseases classified elsewhere; I10 Essential (primary) hypertension; E78.5 Hyperlipidemia, unspecified; G60.9 Hereditary and idiopathic neuropathy, unspecified; M54.16 Radiculopathy, lumbar region; M20.41 Other hammer toe(s) (acquired), right foot; E55.9 Vitamin D deficiency, unspecified; E66.9 Obesity, unspecified; F41.0 Panic disorder [episodic paroxysmal anxiety]; R61 Generalized hyperhidrosis; R73.01 Impaired fasting glucose; F41.9 Anxiety disorder, unspecified; F32.9 Major depressive disorder, single episode, unspecified; H81.10 Benign paroxysmal vertigo, unspecified ear; H54.7 Unspecified visual loss; Z88.2 Allergy status to sulfonamides; Z83.3 Family history of diabetes mellitus; Z80.9 Family history of malignant neoplasm, unspecified; Z68.35 Body mass index [BMI] 35.0-35.9, adult; Z87.891 Personal history of nicotine dependence; Z79.82 Long term (current) use of aspirin; Z79.899 Other long term (current) drug therapy
CPT/HCPCS: 36415; 80048; 80202; 85014; 85018; 85025; 85045; 85049; 87070; 87073; 87077; 87186; 87205; 87640; 87641; 88305; 88311; 93922; 96374; A9270-GY; G0378; G8978-GP-CI; G8979-GP-CH; G8987-GO-CI; G8988-GO-CI; G8989-GO-CI; J0690; J0696; J0878; J1100; J2250; J2704; J3010; J3370

== ENCOUNTER → 2019-12-01 08:49 | Day surgery (SDC) | payer MEDICARE, OTHER ==
[~2019-12-01 08:49] MED LIST changes: +Bupivacaine 0.5%* 50 ML MDV VIAL ONE; -Dexamethasone IV* 4 MG/ML 1 ML (4 MG) IV SLOW PU ONE; +Dexamethasone IV* 4 MG/ML 1 ML (4 MG) ONE; -Famotidine IV* 10 MG/ML 2 ML (20 mg) IV ONE; +HYDROmorphone INJ1* 1 MG/ML SYRINGE IV PRN; +Lidocaine 2% PF * 5 ML VIAL ONE; +Lidocaine 2% PF* 10 ML AMP ONE; +Midazolam* 1 MG/ML 2 ML VIAL (2 MG) ONE; +Naloxone* 0.4 MG/ML 1 ML VIAL IV PRN; +Ondansetron INJ* 2 MG/ML VIAL ONE; +Propofol* 10 MG/ML 20 ML BTL ONE; +ceFAZolin 2 GM PREMIX in ORs 2 GM/50 ML BAG ONE; +fentaNYL* 50 MCG/ML 2 ML VIAL (100 MCG VIAL) ONE
[2019-12-01 12:15] VITALS: BP 124/67
--- NOTE | 2019-12-02 05:28 | OP ---
DATE OF OPERATION: 12/01/19 - LOCATED WITHIN [facility] DATE OF : 46 SURGEON: William Garcia MD MONOTYPE CASTER: Joaquin Mckeon PA-C. PRE-OP DIAGNOSIS: Recurrent ulcer, right medial great toe with underlying neuropathy. POST-OP DIAGNOSIS: Recurrent ulcer, right medial great toe with underlying neuropathy. OPERATIVE PROCEDURE: Ostectomy right great toe with repair of ulcer. DESCRIPTION OF PROCEDURE: The patient was taken to the operating room where some local anesthetic was instilled around the medial ray and an ankle Esmarch applied. She had a large quarter sized thickened callus at the medial plantar first IP joint and when this was debrided, we noticed an ulcer about a dime size underneath this. We incised directly through that and then raised a dorsal plantar flap. Cultures were sent. Using the microsagittal saw, we removed the medial 20% of the condyles at the IP joint. We irrigated thoroughly and then debrided the skin edges. We were able to close the wound with 2-0 Monocryl and 2-0 Prolene. A compression dressing was then applied. [id number]/[facility] #: [id number] [facility]
== END | disposition home or self-care (01) ==
LOC: OR 08:49
PROVIDERS: ATTEND Orthopaedic Surgery
DX: L97.511 Non-pressure chronic ulcer of other part of right foot limited to breakdown of skin (principal); M20.5X1 Other deformities of toe(s) (acquired), right foot; M76.821 Posterior tibial tendinitis, right leg; G62.9 Polyneuropathy, unspecified; I10 Essential (primary) hypertension; F41.8 Other specified anxiety disorders; Z88.2 Allergy status to sulfonamides; Z87.891 Personal history of nicotine dependence
CPT/HCPCS: 87070; 87073; 87077; 87184; 87186; 87205; 88304; 88311; J0690; J1100; J2001; J2250; J2405; J2704; J3010; J3490